=== PATIENT | female | born 1955 | race Caucasian/White ===

== ENCOUNTER 2019-07-10 15:52 | Emergency (ER) | payer OTHER, SELFPAY ==
[2019-07-10 15:55] VITALS: BP 119/68; PULSE 97; RESP 20; TEMP 36.3; O2SAT 99
[2019-07-10 17:35] LABS: Bacteria Urine Few (2-10); Culture Indicated Urine Specimen Cultured; Mucus Urine 1+ (Negative); RBC Urine >100/HPF (0-5/HPF); Squamous Epithelial Cell Urine 0-1 /HPF (0-5/HPF); WBC Urine 5-10/HPF (0-5/HPF)
--- NOTE | 2019-07-10 19:07 | ED.FEMALEGU ---
HPI - Female Genitourinary General Chief complaint: Urogenital-Female Stated complaint: bladder pain Time Seen by Provider: 07/10/19 18:01 Source: patient Mode of arrival: Ambulatory Limitations: no limitations History of Present Illness HPI Narrative: The patient is a 64-year-old female current smoker with history of hypertension hyperlipidemia presents with a chief complaint of bladder pain and spasm. She states she started having bladder pain, dysuria urgency frequency today. She denies any fevers nausea vomiting or diarrhea. She denies any flank pain that is abnormal for her. She denies any concern about sexually transmitted infections or vaginal discharge Related Data Home Medications Medication Instructions Recorded Confirmed naproxen [Naprosyn] #0 01/21/13 tramadol #0 01/21/13 Previous Rx's Medication Instructions Recorded sulfamethoxazole-trimethoprim 1 tab PO BID #14 tab 07/10/19 [Bactrim DS] Review of Systems Review of Systems Narrative: GENERAL: Denies chills, fatigue, malaise, fever, sweats. HEENT: Denies sinus pain, ear pain, sore throat, difficulty swallowing, dizziness. RESPIRATORY: Denies dyspnea, cough, wheezing, hemoptysis, sputum. CARDIOVASCULAR: Denies chest pain, palpitations, orthopnea, edema, GASTROINTESTINAL: See HPI : See HPI MUSCULOSKELETAL: denies weakness, joint pain, or bony pain SKIN: Denies rash, skin lesions, or other NEUROLOGIC: Denies weakness, headache, numbness, change in speech, confusion, seizures, incoordination. PSYCHIATRIC: No concerning psychosocial issues. 12 point review of systems is negative except for those stated above Exam Narrative Exam Narrative: GENERAL: This is a well-nourished, well-developed patient, in no acute distress HEAD: Atraumatic. Normocephalic. No temporal or scalp tenderness. EYES: Pupils equal round and reactive. Extraocular motions intact. No scleral icterus. No injection or drainage. ENT: Nose without bleeding, purulent drainage or septal hematoma. Throat without erythema, tonsillar hypertrophy or exudate. Uvula midline. Airway patent. NECK: Trachea midline. No JVD or lymphadenopathy. Supple, nontender, no meningeal signs. CARDIOVASCULAR: Regular rate and rhythm RESPIRATORY: Clear to auscultation. Breath sounds equal bilaterally. No wheezes, rales, or rhonchi. No cough. No increased respiratory effort. No accessory muscle use. GASTROINTESTINAL: Abdomen soft, slight suprapubic pain to palpation, nondistended. No hepato-splenomegaly, or palpable masses. No guarding. EXTREMITIES: No clubbing, cyanosis, or edema. No joint tenderness, effusion, or edema noted. BACK: Nontender without deformity or crepitance. No CVA tenderness bilaterally NEURO: AOx3. SKIN: No rash or erythema on visible skin Initial Vital Signs Initial Vital Signs: Vital Signs Temperature 97.4 F L 07/10/19 15:55 Pulse Rate 97 H 07/10/19 15:55 Respiratory Rate 20 07/10/19 15:55 Blood Pressure 119/68 07/10/19 15:55 Pulse Oximetry 99 07/10/19 15:55 Course Orders Ordered: ED Orders 07/10/19 16:55 Urine Culture Stat Urine Microscopic Stat Vital Signs Vital signs: Vital Signs - 8 hr 07/10/19 15:55 Temperature 97.4 F L Pulse Rate 97 H Respiratory Rate 20 Blood Pressure 119/68 Pulse Oximetry 99 MDM - Female Genitourinary Lab Data Labs: Lab Results 07/10/19 Range/Units 16:55 Urine RBC >100/hpf H (0-5/HPF) Urine WBC 5-10/hpf H (0-5/HPF) Ur Squamous Epith Cells 0-1 /hpf (0-5/HPF) Urine Bacteria Few (2-10) H (None) Urine Mucus 1+ H (Negative) Ur Culture Indicated? Specimen cultured Urine Dip Bedside Urine Glucose Negative Bedside Urine Bilirubin - Negative Bedside Urine Ketone - Negative Urine Specific [place] 1.025 Bedside Urine Occult Blood +++ Bedside Urine pH 6.0 Bedside Urine Protein + 30 Bedside Urine Urobilinogen - Negative Bedside Urine Nitrite - Negative Bedside Urine Leukocytes - Negative Esterase [facility] Narrative Medical decision making narrative: The patient is a 61-year-old female who presents with a chief complaint of dysuria urgency and frequency as well as bladder pain. Urinalysis is concerning for UTI. She has bacteria, WBCs, RBCs mucus. Of systemic infection, is afebrile, hemodynamically stable and keeping p.o. fluids well. Placed her on Bactrim x5 days with urine culture pending. Discussed at length return precautions the emergency department including inability keep down fluids, severe flank pain fevers etcetera. Patient has no questions or concerns upon discharge and states understanding of return precautions as well as follow-up care. Discharge Plan Departure Patient Disposition: Home Clinical Impression: Urinary tract infection Qualifiers: Urinary tract infection type: acute cystitis Hematuria presence: with hematuria Qualified Code(s): N30.01 - Acute cystitis with hematuria Instructions: DI for Urinary Tract Infection (UTI) Activity Restrictions/Additional Instructions: I sent a prescription of an antibiotic to [facility] in [place]. Please take this with a probiotic or yogurt. As discussed please push fluids. Please monitor for signs of worsening such as inability keep down fluids, high fever etcetera Please come back to emergency department for any acute concerns The urine culture result in 2-3 days we will call you if we have to change antibiotics Prescriptions: New sulfamethoxazole-trimethoprim [Bactrim DS] 800-160 mg tablet 1 tab PO BID Qty: 14 RF: 0 No Action tramadol 50 MG tablet Qty: 0 RF: 0 naproxen [Naprosyn] 500 MG tablet Qty: 0 RF: 0 Referrals: Rubén Thomas MD [Primary Care Provider] -
== END 2019-07-10 19:10 | disposition home or self-care (01) ==
PROVIDERS: Emergency Medicine; Emergency Provider Nurse Practitioner Family; Family Provider Family Medicine; PCP Family Medicine
DX: N30.01 Acute cystitis with hematuria (principal)
CPT/HCPCS: 81003; 81015; 87086; 99281; 99283